=== PATIENT | female | born 1995 | race Caucasian/White ===

== ENCOUNTER 2018-05-15 05:15 | Outpatient (CLI) | payer MEDICAID | END 2018-05-15 11:04 | disposition home or self-care (01) | LOC: OBT 05:15 → L-D 05:15 → OBT 11:04 | DX: O62.9 Abnormality of forces of labor, unspecified (principal); Z3A.40 40 weeks gestation of pregnancy | CPT/HCPCS: 76818 ==

== ENCOUNTER 2018-05-20 16:43 | Inpatient (IN) | payer MEDICAID ==
[2018-05-20] MEDS ORDERED: OXYCODONE/ACETAMINOPHEN (5/325) TAB PO (18:00)
[2018-05-20] MEDS ORDERED: OXYTOCIN 30 UNITS/LR 500 ML IV ×2 (18:00)
[2018-05-20] MEDS ORDERED: IBUPROFEN 600 MG TAB PO (18:00)
[2018-05-20] MEDS: LIDOCAINE 0.5% (SDV) 50 ML INJ INFIL (18:00)
[2018-05-20] MEDS ORDERED: CARBOPROST 250 MCG INJ IM (18:00)
[2018-05-20] MEDS ORDERED: MISOPROSTOL 200 MCG TAB PR (18:00)
[2018-05-20 18:02] LABS: ADD MAN DIFF? NO
[2018-05-20 18:04] LABS: WHITE BLOOD COUNT 7.3 10^3/ul (4.8-10.8)
[2018-05-20 18:04] LABS: BASOPHILS % 0.4 % (0.0-2.0); EOSINOPHILS # 0.2 10^3/ul (0.0-0.5); EOSINOPHILS % 2.6 % (0.0-7.0); HEMATOCRIT 34.2 % (37.0-47.0); HEMOGLOBIN 11.5 g/dl (12.0-16.0); LYMPHOCYTES # 1.3 10^3/ul (0.8-2.9); LYMPHOCYTES % 18.1 % (15.0-51.0); MEAN CORPUSCULAR HEMOGLOBIN 29.2 pg (29.0-33.0); MEAN CORPUSCULAR HGB CONC 33.6 g/dl (32.0-37.0); MEAN CORPUSCULAR VOLUME 86.8 fl (82.0-101.0); MEAN PLATELET VOLUME 10.5 fl (7.4-10.4); MONOCYTE # 0.6 10^3/ul (0.3-0.9); MONOCYTES % 7.5 % (0.0-11.0); NEUTROPHIL # 5.2 10^3/ul (1.6-7.5); NEUTROPHILS % 70.3 % (39.0-77.0); PLATELET COUNT 208 10^3/UL (140-415); RED BLOOD COUNT 3.94 10^6/ul (4.20-5.40); RED CELL DISTRIBUTION WIDTH 14.4 % (11.5-14.5)
[2018-05-20] MEDS: LACTATED RINGER'S 1,000 ML IV* ×3 (18:06→22:46)
[2018-05-20 18:23] LABS: INR 0.92; PROTIME 12.4 Sec (11.9-14.9)
[2018-05-20 18:24] LABS: PARTIAL THROMBOPLASTIN TIME 28.6 Sec (23.0-35.0)
[2018-05-20 18:55] LABS: HEPATITIS B SURFACE ANTIGEN NEGATIVE (NEGATIVE)
[2018-05-20] MEDS: MISOPROSTOL 50 MCG CAPSULE PO ×2 (19:57→23:58)
[2018-05-20] MEDS: MINERAL OIL LIGHT 10 ML VIAL TOP (20:40)
[2018-05-20 22:56] LABS: RAPID PLASMA REAGIN NONREACTIVE (NR)
[2018-05-21] MEDS: LACTATED RINGER'S 1,000 ML IV* ×5 (01:30→19:17)
[2018-05-21] MEDS: BUTORPHANOL 2 MG INJ IV ×2 (01:38→04:41)
[2018-05-21 09:21] LABS: AMPHETAMINE/METHAMPHETAMINE Negative (NEGATIVE); BARBITURATES Negative (NEGATIVE); BENZODIAZEPINES Negative (NEGATIVE); CANNABINOIDS Negative (NEGATIVE); COCAINE Negative (NEGATIVE); OPIATES Negative (NEGATIVE)
[2018-05-21] MEDS ORDERED: NALOXONE (0.4 MG/ML) INJ IV (09:30)
[2018-05-21] MEDS ORDERED: KETOROLAC 30 MG INJ IV (09:30)
[2018-05-21] MEDS ORDERED: DIPHENHYDRAMINE 50 MG INJ IV (09:30)
[2018-05-21] MEDS ORDERED: HYDROmorphONE 0.5 MG/0.5 ML SYG IV ×2 (09:30)
[2018-05-21] MEDS ORDERED: ZOLPIDEM 5 MG TAB PO (09:30)
[2018-05-21] MEDS: FENTAnyl 2MCG/ML-ROPIV 0.2% 100 ML BAG EPI (18:18)
[2018-05-21] MEDS ORDERED: LIDOCAINE 1% (MPF) 30 ML INJ (23:15)
[2018-05-21] MEDS: OXYTOCIN 30 UNITS/LR 500 ML IV ×2 (23:26→23:44)
[2018-05-21] MEDS: METHYLERGONOVINE 0.2 MG INJ IM (23:34)
[2018-05-21] MEDS: ONDANSETRON 4 MG INJ IV (23:54)
[2018-05-21] MEDS: LIDOCAINE 1% (MPF) 30 ML INJ INJ (23:58)
[2018-05-22] MEDS ORDERED: OXYTOCIN 30 UNITS/LR 500 ML IV
[2018-05-22] MEDS ORDERED: DIPHENHYDRAMINE 25 MG CAP PO
[2018-05-22] MEDS ORDERED: NA PHOSPHATE/BIPHOS 133 ML ENEMA PR
[2018-05-22] MEDS ORDERED: HYDROCODONE/APAP (5/325) TAB PO ×2
[2018-05-22] MEDS ORDERED: ONDANSETRON 4 MG INJ IV
[2018-05-22] MEDS ORDERED: ONDANSETRON 4 MG TAB PO
[2018-05-22] MEDS ORDERED: SENNA/DOCUSATE NA (8.6MG/50MG) TAB PO
[2018-05-22] MEDS ORDERED: MISOPROSTOL 200 MCG TAB PR
[2018-05-22] MEDS ORDERED: DIBUCAINE 1% 30 GM OINT TOP
[2018-05-22] MEDS ORDERED: MAGNESIUM HYDROXIDE 30ML CUP PO
[2018-05-22] MEDS ORDERED: DIPHENHYDRAMINE 50 MG INJ IV
[2018-05-22] MEDS ORDERED: CARBOPROST 250 MCG INJ IM
[2018-05-22] MEDS: ACETAMINOPHEN 500 MG TAB PO (00:22)
[2018-05-22] MEDS: PIPER-TAZO 3.375 GM IV (PMX) 100 ML IVPB ×4 (00:25→21:50)
[2018-05-22] MEDS: MINERAL OIL LIGHT 10 ML VIAL TOP (01:30)
[2018-05-22] MEDS: LIDOCAINE 0.5% (SDV) 50 ML INJ INFIL (01:30)
[2018-05-22] MEDS ORDERED: PIPER-TAZO 3.375 GM IV (PMX) 100 ML IVPB (02:00)
[2018-05-22] MEDS: IBUPROFEN 600 MG TAB PO ×4 (02:07→17:45)
[2018-05-22] MEDS: LANOLIN 7 GM TUBE TOP (02:08)
[2018-05-22] MEDS: BENZOCAINE 20% 56 ML SPRAY TOP (02:08)
[2018-05-22] MEDS: WITCH HAZEL/GLYCERIN PAD PR (02:09)
[2018-05-22] MEDS: LACTATED RINGER'S 1,000 ML IV* ×3 (05:09→23:49)
[2018-05-22 08:35] LABS: ADD MAN DIFF? NO
[2018-05-22 08:36] LABS: BASOPHILS % 0.2 % (0.0-2.0); EOSINOPHILS % 0.3 % (0.0-7.0); HEMATOCRIT 25.3 % (37.0-47.0); HEMOGLOBIN 8.4 g/dl (12.0-16.0); LYMPHOCYTES # 1.4 10^3/ul (0.8-2.9); LYMPHOCYTES % 10.2 % (15.0-51.0); MEAN CORPUSCULAR HEMOGLOBIN 29.4 pg (29.0-33.0); MEAN CORPUSCULAR HGB CONC 33.2 g/dl (32.0-37.0); MEAN CORPUSCULAR VOLUME 88.5 fl (82.0-101.0); MEAN PLATELET VOLUME 10.7 fl (7.4-10.4); MONOCYTE # 0.9 10^3/ul (0.3-0.9); MONOCYTES % 6.5 % (0.0-11.0); NEUTROPHIL # 11.4 10^3/ul (1.6-7.5); NEUTROPHILS % 82.4 % (39.0-77.0); PLATELET COUNT 179 10^3/UL (140-415); RED BLOOD COUNT 2.86 10^6/ul (4.20-5.40); RED CELL DISTRIBUTION WIDTH 14.7 % (11.5-14.5)
[2018-05-22 08:36] LABS: WHITE BLOOD COUNT 13.8 10^3/ul (4.8-10.8)
[2018-05-22] MEDS: SENNA/DOCUSATE NA (8.6MG/50MG) TAB PO ×2 (08:40→21:51)
[2018-05-22] MEDS: INFLUENZA VIRUS VACCINE 0.5 ML (DISPENSING) IM* (14:20)
[2018-05-23] MEDS: IBUPROFEN 600 MG TAB PO ×3 (00:02→12:00)
[2018-05-23] MEDS: PIPER-TAZO 3.375 GM IV (PMX) 100 ML IVPB ×2 (06:06→14:00)
[2018-05-23] MEDS: DIPHTH/TET/ACEL PERTUSS (ADULT) 0.5 ML VIAL IM* (09:00)
[2018-05-23] MEDS: VARICELLA VACCINE LIVE/PF 1,350 UNIT/0.5 ML ML SC* (09:00)
[2018-05-23] MEDS: SENNA/DOCUSATE NA (8.6MG/50MG) TAB PO (09:00)
[2018-05-23] MEDS: MEASLES,MUMPS,RUBELLA VACCINE INJ SC* (09:00)
== END 2018-05-23 17:35 | disposition home or self-care (01) | DRG 807 ==
LOC: PP1 05-22 01:42 → L-D 16:43
PROVIDERS: Specialist
PROC: 4A1HXCZ Monitoring of Products of Conception, Cardiac Rate, External Approach (ICD-10-PCS; 2018-05-20)
PROC: 3E0D7GC Introduction of Other Therapeutic Substance into Mouth and Pharynx, Via Natural or Artificial Opening (ICD-10-PCS; 2018-05-20)
PROC: 10E0XZZ Delivery of Products of Conception, External Approach (ICD-10-PCS; principal; 2018-05-21)
PROC: 0KQM0ZZ Repair Perineum Muscle, Open Approach (ICD-10-PCS; 2018-05-21)
PROC: 10907ZC Drainage of Amniotic Fluid, Therapeutic from Products of Conception, Via Natural or Artificial Opening (ICD-10-PCS; 2018-05-21)
PROC: 3E0234Z Introduction of Serum, Toxoid and Vaccine into Muscle, Percutaneous Approach (ICD-10-PCS; 2018-05-22)
DX: O48.0 Post-term pregnancy (principal); Z37.0 Single live birth; O70.1 Second degree perineal laceration during delivery; Z3A.41 41 weeks gestation of pregnancy; Z23 Encounter for immunization
CPT/HCPCS: 62319; 76815; 80307; 85025; 85610; 85730; 86592; 86850; 86900; 86901; 87340; 90686; 90715; 90716; 99464